=== PATIENT | male | born 1970 | race Caucasian/White ===

== ENCOUNTER 2018-05-25 21:26 | Observation (INO) ==
--- NOTE | 2018-05-25 22:10 | Emergency Department Note ---
Disposition Clinical Impression: Bilateral leg weakness Disposition: Still a Patient Referrals: NONE,PCP [Primary Care Provider] - General Adult HPI - General Chief complaint: ED Extremity Injury, Lower Stated complaint: Paralized Legs Time Seen by Provider: 05/25/18 21:32 Source: patient, family Limitations: no limitations Nursing Notes Reviewed: Yes Vital Signs Reviewed: Yes - History of Present Illness HPI Narrative: Attestation note: Patient was seen with the emergency medicine resident/nurse practitioner/physician assistant surveyor/transitional resident/medical student: Dr. JAIMEE RODRÍGUEZ I have personally performed a face to face evaluation on this patient. I have reviewed and agree with history and physical examination patient management and disposition. Briefly the salient points of the case are as follows: 47-year-old male history of bulging disc in the back was sitting at home about 3 hours prior to arrival atraumatically felt heaviness in his legs could not move them be helped into the car and helped him to the ER. He has 5 out of 5. Push and full extension. He has minimal reflexes patellar and ankle jerk bilaterally and he is unable to lift his leg off the bed or keep it elevated when it is elevated for him and eyedrops right the bed. Patient denies IV drugs fever trauma or recent travel. Consult with radiology to get approval for emergent MRI of the T and L-spine. Getting screening labs. Patient does not any pain at this time. We are ruling out a possible acute neurosurgical emergency. The car providing 45 minutes critical care service for this patient. Pain Scale: 0 Past Medical History - Past Medical History Medical history: Reports: no medical history Psychiatric history: Reports: no psych history - Social History Smoking Status: Current every day smoker Smokeless Tobacco Status: No Alcohol use: Reports: none Drug use: Reports: none Physical Exam - General Limitations: no limitations General appearance: alert, in no apparent distress Course Vital Signs Temperature 98.4 F 05/25/18 21:32 Pulse Rate 86 05/25/18 21:32 Respiratory Rate 18 05/25/18 21:32 Blood Pressure 147/94 05/25/18 21:32 O2 Sat by Pulse Oximetry 97 05/25/18 21:32 Temperature 98.4 F 05/25/18 21:32 Pulse Rate 86 05/25/18 21:32 Respiratory Rate 18 05/25/18 21:32 Blood Pressure 147/94 05/25/18 21:32 O2 Sat by Pulse Oximetry 97 05/25/18 21:32 Oxygen Delivery Oxygen Delivery Room Air
[2018-05-25 22:39] LABS: Basophils % 0.2 %; Eosinophils # 0.1 K/mcL (0.0-0.6); Eosinophils % 0.5 %; Hematocrit 53.5 % (37.5-50.1); Hemoglobin 18.4 g/dL (12.9-16.9); Immature Granulocytes % 0.3 % (0-4); Lymphocytes # 2.4 K/mcL (0.6-4.6); Mean Corpuscular HGB Conc 34.4 g/dL (31.6-35.5); Mean Corpuscular Hemoglobin 31.4 pg (28.0-33.3); Mean Corpuscular Volume 91.3 fL (83.0-100.0); Mean Platelet Volume 8.7 fL (9.4-12.4); Monocytes # 1.1 K/mcL (0.0-1.3); Monocytes % 6.1 %; Neutrophils # 13.7 K/mcL (1.6-8.9); Platelet Count 313 K/mcL (140-400); Red Blood Count 5.86 M/mcL (4.19-5.50); Red Cell Distribution Width 12.9 % (11.5-14.5); Segmented Neutrophils % 78.9 %
--- NOTE | 2018-05-25 22:42 | Emergency Department Note ---
Disposition Clinical Impression: Bilateral leg weakness Disposition: Still a Patient Condition: Fair Referrals: NONE,PCP [Primary Care Provider] - Forms: ED Satisfaction Letter General Adult HPI - General Chief complaint: ED Extremity Injury, Lower Stated complaint: Paralized Legs Time Seen by Provider: 05/25/18 21:32 Source: patient, family Limitations: no limitations Nursing Notes Reviewed: Yes Vital Signs Reviewed: Yes - History of Present Illness HPI Narrative: 47-year-old male with no past medical history presenting with complaint of weakness in bilateral lower extremities. Patient states that for the past 2 weeks at the end of the day, he notes generalized weakness and bilateral lower extremities. He states he has not been doing any heavy lifting or strenuous activity at work. Yesterday evening he developed cough and congestion. This morning he felt feverish and cough is worsening. His and grandson are also sick with similar symptoms. He started taking his 's antibiotic which she does not know the name of, prednisone, cough syrup this morning. 3 hours prior to arrival, the patient states he sat down and 45 minutes later he tried to stand up but was unable to. He states he could not get himself out of the chair. His helped him up and he immediately collapsed to the floor. States he cannot hold up his own weight. He also states he cannot lift his legs up off the bed. He is however able to wiggle his toes and move his ankles. He does complain of a burning sensation in bilateral groin in the muscle if he tries to lift up his legs. He denies any sensory deficit, urinary or bowel incontinence or retention. Denies travel outside of the country, abnormal bug bites. He denies IV drug use. States he does have a history of 3 bulging disks in his lower back that was diagnosed a few months ago. He also denies any trauma or back pain. He also denies lower extremity pain. Pain Scale: 0 - Related Data Allergies Allergy/AdvReac Type Severity Reaction Status Date / Time No Known Allergies Allergy Verified 05/25/18 22:48 All systems ED: reviewed and negative except as stated. Review of Systems: As Per HPI Constitutional: Denies: fever, chills Eyes: Denies: eye pain, vision change Cardiovascular: Denies: chest pain, palpitations Respiratory: Reports: cough, dyspnea Gastrointestinal: Denies: abdominal pain, nausea, vomiting, diarrhea Genitourinary: Denies: urgency, dysuria Musculoskeletal: Denies: back pain Integumentary: Denies: rash, abrasion, lesions Neurological: Reports: weakness, abnormal gait. Denies: headache, paresthesias, confusion Past Medical History - Past Medical History Attestation: Yes The following information was validated with the patient. Source: patient Medical history: Reports: no medical history Psychiatric history: Reports: no psych history - Social History Smoking Status: Current every day smoker Smokeless Tobacco Status: No Alcohol use: Reports: none Drug use: Reports: none Physical Exam - General Limitations: no limitations General appearance: alert, in no apparent distress - Head Head exam: atraumatic, normocephalic, normal inspection - Eye Eye exam: Present: normal appearance, PERRL, EOMI - ENT ENT exam: normal exam, normal oropharynx, mucous membranes moist - Neck Neck exam: Present: normal inspection, full ROM, trachea midline - Chest Chest inspection: Present: normal inspection, symmetric chest wall rise - Respiratory Respiratory exam: Present: normal lung sounds bilaterally. Absent: respiratory distress, wheezes - Cardiovascular Cardiovascular exam: Present: regular rate, normal rhythm, normal heart sounds - Abdominal Exam Abdominal exam: Present: soft, Non-Tender. Absent: tenderness, distention, guarding, rebound, rigidity - Extremities Exam Extremities exam: Present: normal capillary refill, other (Bilateral dorsalis pedis pulses are equal). Absent: tenderness - Back Exam Back exam: Present: normal inspection, full ROM. Absent: tenderness, paraspinal tenderness - Neurological Exam Neurological exam: Present: alert, oriented X3, CN II-XII intact, other (5/5 strength plantar flexion and dorsiflexion. Able to tense calf muscles. Unable to raise legs off the bed at the hips. Proximal lower extremity strength is 0/5. No clonus.) - Expanded Neurological Exam Patient oriented to: Present: person, place, time Speech: Present: fluid speech Upper motor neuron exam: keara neglect: Absent bilaterally, Babinski sign: Absent bilaterally Sensory exam upper extremity: light touch: Normal, pin prick: Normal Sensory exam lower extremity: light touch: Normal, pin prick: Normal DTR: patellar (L): 0, patellar (R): 0, Achilles tendon (L): 0, Achilles tendon (R): 0 Spinal cord function: Present: normal rectal tone - Psychiatric Psychiatric exam: Present: normal affect, normal mood - Skin Skin exam: Present: warm, dry, intact, normal color, diaphoresis Course Vital Signs Temperature 98.4 F 05/25/18 21:32 Pulse Rate 86 05/25/18 21:32 Respiratory Rate 18 05/25/18 21:32 Blood Pressure 147/94 05/25/18 21:32 O2 Sat by Pulse Oximetry 97 05/25/18 21:32 Temperature 98.4 F 05/25/18 21:32 Pulse Rate 86 05/25/18 21:32 Respiratory Rate 18 05/25/18 21:32 Blood Pressure 147/94 05/25/18 21:32 O2 Sat by Pulse Oximetry 97 05/25/18 21:32 Oxygen Delivery Oxygen Delivery Room Air Medical Decision Making - MDM Narrative Medical decision making narrative: Patient presenting with proximal lower extremity muscle weakness. He denies any pain in his lower extremities.. He denies back pain or trauma. He has no sensory deficits. He is able to plantarflex and dorsiflex. He does however have decreased patellar and achilles reflexes. Unable to lift his extremities off the bed, bear weight. No urinary or bowel incontinence or retention. Unclear etiology at this time. He does have a history of 3 bulging disks in his lower back. We will obtain emergent MRI of his thoracic and lumbar spine to further evaluate. We will also obtain a CRP, ESR to screen for possible inflammatory infectious processes. Will also check CBC or BMP. Anticipate admission as patient has sudden onset weakness localized to proximal musculature of bilateral lower extremities. 2300 Patient has leukocytosis of 17,000. He also has elevated ESR (39) and CRP (46). Patient's potassium is 3.0. We will replace this orally. Awaiting MRI. 0050 Still awaiting the patient's MRI. He has signed out to shift mechanic team. SBAR signout completed. Patient's vitals remaining stable. No new complaints at this time. MRI results pending and anticipate admission. - Medical Records Medical records reviewed: Yes I reviewed the patient's medical records. - Lab Data Lab results reviewed: Yes I reviewed the patient's lab results. Result diagrams: 05/25/18 22:05 05/25/18 22:05 Lab Results 05/25/18 05/25/18 05/25/18 Range/Units 22:05 22:05 22:05 WBC 17.3 H (4.3-11.1) K/mcL RBC 5.86 H (4.19-5.50) M/mcL Hgb 18.4 H (12.9-16.9) g/dL Hct 53.5 H (37.5-50.1) % MCV 91.3 (83.0-100.0) fL MCH 31.4 (28.0-33.3) pg MCHC 34.4 (31.6-35.5) g/dL RDW 12.9 (11.5-14.5) % Plt Count 313 (140-400) K/mcL MPV 8.7 L (9.4-12.4) fL Immature Gran % 0.3 (0-4) % Seg Neutrophils % 78.9 % Lymphocytes % 14.0 % Monocytes % 6.1 % Eosinophils % 0.5 % Basophils % 0.2 % Neutrophils # 13.7 H (1.6-8.9) K/mcL Lymphocytes # 2.4 (0.6-4.6) K/mcL Monocytes # 1.1 (0.0-1.3) K/mcL Eosinophils # 0.1 (0.0-0.6) K/mcL Basophils # 0.0 (0.0-0.2) K/mcL ESR 39 H (0-10) mm/hr Sodium 139 (136-145) mEq/L Potassium 3.0 L (3.5-5.1) mEq/L Chloride 106 (98-107) mEq/L Carbon Dioxide 25 (23-29) mEq/L BUN 16 (6-20) mg/dL Creatinine 1.02 (0.70-1.30) mg/dL Est GFR ( Amer) > 60 (> 60) Est GFR (Non-Af Amer) > 60 (> 60) BUN/Creatinine Ratio 16 (6-26) Glucose 141 H (70-105) mg/dL Calculated Osmolality 292 (280-300) Calcium 9.7 (8.6-10.3) mg/dL C-Reactive Protein 46 H (Less than 10) mg/L
[2018-05-25 22:55] LABS: BUN/Creatinine Ratio 16 (6-26); Blood Urea Nitrogen 16 mg/dL (6-20); C-Reactive Protein 46 mg/L (Less than 10); Calcium 9.7 mg/dL (8.6-10.3); Carbon Dioxide 25 mEq/L (23-29); Chloride 106 mEq/L (98-107); Glucose 141 mg/dL (70-105); Osmolality,Calculated 292 (280-300); Sodium 139 mEq/L (136-145); eGFR For Non-African Americans > 60 (> 60)
[2018-05-26 00:55] LABS: Creatine Kinase 76 Units/L (30-223)
[2018-05-26] MEDS ORDERED: 0.9 % Sodium Chloride 1,000 ML IVC ONE (01:00)
[2018-05-26] MEDS ORDERED: Ipratropium/Albuterol Neb 3 ML IH STA (03:52)
[2018-05-26] MEDS ORDERED: Naloxone 0.4 MG/ML INJ IVP PRN (04:39)
--- NOTE | 2018-05-26 04:50 | Emergency Department Note ---
Disposition Clinical Impression: Bilateral leg weakness, Hypokalemia Leukocytosis Qualifiers: Leukocytosis type: unspecified Qualified Code(s): D72.829 - Elevated white blood cell count, unspecified Disposition: Admitted As Inpatient Condition: Good Referrals: NONE,PCP [Primary Care Provider] - Forms: ED Satisfaction Letter General Adult HPI - General Chief complaint: ED Extremity Injury, Lower Stated complaint: paralyzed Legs Time Seen by Provider: 05/25/18 21:32 Source: patient, family Limitations: no limitations - History of Present Illness Pain Scale: 0 - Related Data Allergies Allergy/AdvReac Type Severity Reaction Status Date / Time No Known Allergies Allergy Verified 05/25/18 22:48 Constitutional: Denies: fever, chills Eyes: Denies: eye pain, vision change Cardiovascular: Denies: chest pain, palpitations Respiratory: Reports: cough, dyspnea Gastrointestinal: Denies: abdominal pain, nausea, vomiting, diarrhea Genitourinary: Denies: urgency, dysuria Musculoskeletal: Denies: back pain Integumentary: Denies: rash, abrasion, lesions Neurological: Reports: weakness, abnormal gait. Denies: headache, paresthesias, confusion Past Medical History - Past Medical History Medical history: Reports: no medical history Psychiatric history: Reports: no psych history - Social History Smoking Status: Current every day smoker Smokeless Tobacco Status: No Alcohol use: Reports: none Drug use: Reports: none Physical Exam - General Limitations: no limitations General appearance: alert, in no apparent distress Course Course Narrative: Patient was taken over at sign out from Dr. Rogers. Patient was evaluated at bedside after sign out. Patient reports that he is here as he was unable to get himself up off the couch secondary to his legs not working. The patient states that he is been having muscle cramps and associated weakness. Started proximally 2 weeks ago when he was having pain in his calves worse on the left after walking. After episodes of walking he would feel as if he had done calf raises at the gym. Patient states that he was overly sore. Did not understand it. Patient started having episodes like this in the thighs. Patient today had been having worsening symptoms like this until he sat on the couch and was unable to get up. On workup the patient was found to have an elevated white blood cell count. Patient had hypokalemia. Mildly elevated ESR and CRP. Patient states that he is had a cold for the last several days and has been taking his 's prednisone antibiotics. The prednisone may explain the patient's elevated white count. Patient states that he has had a cough and would like something for it. On lung exam he does have wheezing and likely has bronchitis. Given the uncertain etiology of his underlying paralysis and chest x-ray was performed in addition with the [facility]oN[facility]. The patient states that he has had previous episodes of pericarditis that had unknown etiology. General: Well appearing, nontoxic, no acute distress Head: Normocephalic Atraumatic Eyes: PERRL, EOMI ENT: Airway patent, no stridor Neck: supple, no meningismus Chest: Mild expiratory wheezing Cardiac: Regular rate and rhythm, no murmurs, rubs or gallops Abdomen: soft, nontender, nondistended; no guarding, rebound, or tenderness to percussion Musculoskeletal: Calves symmetric, nontender. Skin: No rash, normal skin tone. Neuro: Alert and Oriented to person, place, and time; No obvious focal deficit. Cranial nerve II through XII intact. Upper extremity sensation and strength is intact. Sensation throughout the torso as well as the lower extremities is intact. Patient has weakness to lower extremities. Weakness is most significant in the hip flexors. The patient has more strength with knee extension as well as plantar and dorsiflexion and hip flexion. Symptoms are worse on the left than the right. Patellar reflexes are +2 and symmetric. Rectal exam shows good rectal tone. Patient's MRI did not show any significant acute pathology. He does know that he has degenerative disc disease. MRI approximately a month ago. The case was discussed with neurology. Dr. Ott will see him as an inpatient at [facility]. No need for lumbar puncture transfer at this time. Discussed the hospitalist. Patient accepted for admission. Recommends getting an EKG and a lactic acid. Vital Signs Temperature 98.4 F 05/25/18 21:32 Pulse Rate 86 05/25/18 21:32 Respiratory Rate 18 05/25/18 21:32 Blood Pressure 147/94 05/25/18 21:32 O2 Sat by Pulse Oximetry 97 05/25/18 21:32 Temperature 98.4 F 05/25/18 21:32 Pulse Rate 82 05/26/18 04:09 Respiratory Rate 16 05/26/18 04:26 Blood Pressure 129/87 05/26/18 04:09 O2 Sat by Pulse Oximetry 96 05/26/18 04:26 Oxygen Delivery Oxygen Delivery Room Air Medical Decision Making - Lab Data Result diagrams: 05/25/18 22:05 05/25/18 22:05 Lab Results 05/25/18 05/25/18 05/25/18 Range/Units 22:05 22:05 22:05 WBC 17.3 H (4.3-11.1) K/mcL RBC 5.86 H (4.19-5.50) M/mcL Hgb 18.4 H (12.9-16.9) g/dL Hct 53.5 H (37.5-50.1) % MCV 91.3 (83.0-100.0) fL MCH 31.4 (28.0-33.3) pg MCHC 34.4 (31.6-35.5) g/dL RDW 12.9 (11.5-14.5) % Plt Count 313 (140-400) K/mcL MPV 8.7 L (9.4-12.4) fL Immature Gran % 0.3 (0-4) % Seg Neutrophils % 78.9 % Lymphocytes % 14.0 % Monocytes % 6.1 % Eosinophils % 0.5 % Basophils % 0.2 % Neutrophils # 13.7 H (1.6-8.9) K/mcL Lymphocytes # 2.4 (0.6-4.6) K/mcL Monocytes # 1.1 (0.0-1.3) K/mcL Eosinophils # 0.1 (0.0-0.6) K/mcL Basophils # 0.0 (0.0-0.2) K/mcL ESR 39 H (0-10) mm/hr Sodium 139 (136-145) mEq/L Potassium 3.0 L (3.5-5.1) mEq/L Chloride 106 (98-107) mEq/L Carbon Dioxide 25 (23-29) mEq/L BUN 16 (6-20) mg/dL Creatinine 1.02 (0.70-1.30) mg/dL Est GFR ( Amer) > 60 (> 60) Est GFR (Non-Af Amer) > 60 (> 60) BUN/Creatinine Ratio 16 (6-26) Glucose 141 H (70-105) mg/dL Calculated Osmolality 292 (280-300) Calcium 9.7 (8.6-10.3) mg/dL Magnesium 2.0 (1.6-2.6) mg/dL Creatine Kinase 76 (30-223) Units/L C-Reactive Protein 46 H (Less than 10) mg/L
--- NOTE | 2018-05-26 04:56 | Internal Med History&Physical ---
Date of Encounter: 05/26/18 Time of Encounter: 05:28 Internal Medicine - H&P: HPI Chief complaint: I cant move my legs Admitted From: Home Plans for Post Hospital Care: Home History of present illness: Mr. Scott is a 47 year old male with PMH of tobacco abuse who presented with complains of weakness in bilateral lower extremities. Patient states that for the past 2 weeks at the end of the day, he notes generalized weakness and bilateral lower extremities. He states he has not been doing any heavy lifting or strenuous activity at work. He describes associated pain with heaviness, feeling as if he had been to the gym to work out, when in reality he has not worked out in a year due to his busy schedule. His and kids have had a URI from which they are rcovering, however, Yesterday evening he developed cough and congestion. This morning he felt feverish and cough is worsening. He started taking his 's antibiotic which she does not know the name of, prednisone, cough syrup this morning. 3 hours prior to arrival, the patient states he sat down and 45 minutes later he tried to stand up but was unable to. He states he could not get himself out of the chair. His helped him up and he immediately collapsed to the floor. States he cannot hold up his own weight. He also states he cannot lift his legs up off the bed. He is however able to wiggle his toes and move his ankles. He does complain of a burning sensation in bilateral groin in the muscle if he tries to lift up his legs. He denies any sensory deficit, urinary or bowel incontinence or retention. Denies travel outside of the country, abnormal bug bites. States he does have a history of 3 bulging disks in his lower back that was diagnosed a few months ago. He also denies any trauma or back pain. He also denies lower extremity pain. The patient reports taking up to 1200mg of testosterone in his youth but has recently in the past 3 months taking (self-medicating) 1cc (strength unknown) of testosterone. Last shot was 2 weeks ago prior to the onset of his symptoms He denies illicit drug use, he is also a smoker Work up in the ER significant for leukocytosis and polycythemia, hypokalemia, elevated CRP and ESR. CK is unremarkable and lactate is WNL. CXR is unremarkable for any masses, Lumbar and thoracic MRI noted for chronic DJD, no spinal cord compression Past Med Surg Social Fam HX - Past Medical History Medical history: no medical history Additional medical history: pericarditis Psychiatric history: no psych history - Past Surgical History Additional surgical history: shoulder, right leg, right knee surgery - Social History Smoking Status: Current every day smoker Smokeless Tobacco Status: No Alcohol use: none Drug use: none Internal Medicine - H&P: Meds Allergy/AdvReac Type Severity Reaction Status Date / Time No Known Allergies Allergy Verified 05/25/18 22:48 All Systems PM: A 10-system review of systems was performed and is negative for pertinent findings except as documented above in the HPI. - Constitutional Constitutional: no chills, no fever(s), no night sweats - EENT Eyes: no change in vision, no discharge, no pain, no photophobia Ears: no ear discharge, no ear pain, no tinnitus Nose, mouth and throat: no dysphagia, no nasal discharge, no neck pain, no sore throat - Cardiovascular Cardiovascular ROS IM: no chest pain, no diaphoresis, no dyspnea, no lightheadedness, no palpitations, no syncope - Respiratory Respiratory: no cough, no dyspnea, no wheezing, no excessive phlegm production - Gastrointestinal Gastrointestinal: no abdominal pain, no diarrhea, no hematemesis, no hematoch ezia, no melena, no nausea, no vomiting - Musculoskeletal Musculoskeletal ROS IM: as per HPI, muscle cramps, muscle weakness - Integumentary Integumentary IM: no rash, no unusual bruising - Neurological Neurological ROS: as per HPI - Hematologic/Lymphatic Hematologic/Lymphatic: no easy bruising - Constitutional Vitals: Temp Pulse Resp BP Pulse Ox 98.4 F 82 16 129/87 96 05/25/18 21:32 05/26/18 04:09 05/26/18 04:26 05/26/18 04:09 05/26/18 04:26 Exam: VSS Gen: Not in any form of distress, speaks full sentences, laying flat in bed, flushed HEENT: Atraumatic, not pale, not cyanotic anicteric, dry oral mucosa. Chest: Equal chest wall movement bilaterally, no chest wall tenderness. Respiratory: Clear to auscultation bilaterally. Heart: S1, S2, regular rate and rhythm no murmurs gallops or rubs. Abdomen: Soft, not tender, no palpably enlarged organs, BS present in all quadrants Musculoskeletal: No joint inspection, no pedal edema bilaterally. Skin: No rash Neuro: Alert and oriented 3, normal speech, no facial assymetry, power in upper extremities 5/5, power in upper thiht muscles 3/5, leg muscles 5/5. Knee jerk reflex is brisk, plantar reflex is normal, ankle reflex is mildly delayed. Sensation is intact Internal Med - H&P Results - Labs CBC & Chem 7: 05/25/18 22:05 05/25/18 22:05 Labs: Short CBC 05/25/18 Range/Units 22:05 WBC 17.3 H (4.3-11.1) K/mcL Hgb 18.4 H (12.9-16.9) g/dL Hct 53.5 H (37.5-50.1) % Plt Count 313 (140-400) K/mcL Neutrophils # 13.7 H (1.6-8.9) K/mcL BMP 05/25/18 22:05 Sodium 139 Potassium 3.0 L Chloride 106 Carbon Dioxide 25 BUN 16 Creatinine 1.02 Glucose 141 H Calcium 9.7 - Impressions ITS Impressions Lumbar Spine MRI 05/26/18 21:57 IMPRESSION: 1. Multilevel lumbar spondylosis results in mild L3-L4 and L4-L5 spinal canal stenosis. No moderate or severe lumbar spinal canal stenosis at any level. Multilevel neural foraminal narrowing is most pronounced and moderate to severe at L4-L5 on the right. 2. No thoracic spinal canal or neural foraminal narrowing. Normal thoracic spinal cord. D/ / Bernardo Sessions / Bernardo Meredith Interpreting Provider: Bernardo Meredith Thoracic Spine MRI 05/26/18 21:57 IMPRESSION: 1. Multilevel lumbar spondylosis results in mild L3-L4 and L4-L5 spinal canal stenosis. No moderate or severe lumbar spinal canal stenosis at any level. Multilevel neural foraminal narrowing is most pronounced and moderate to severe at L4-L5 on the right. 2. No thoracic spinal canal or neural foraminal narrowing. Normal thoracic spinal cord. D/ / Bernardo Sessions / Bernardo Sessions Interpreting Provider: Bernardo Sessions - Assessment and plan (1) Paraparesis of both lower limbs Current Visit: Yes Status: Acute Assessment and plan: Multifactorial: Patient with lumbar radiculopathy and testosterone/g lucocorticoid abuse, presenting with myopathy and weakness of his lower extremities Worse on the upper thigh muscles than leg muscles, sensation is intact, hx of URI 2 days ago Associated hypokalemia and hyperglycemia, as well as polycythemia CK is unremarkable Lactate is WNL MRI noted-no cord compression Replace K aggressively-rpt K requested PPTOT and neurology evaluation Low suspicion for Gullian Bare, presentation is atypical in the face of other possible etiologies of paresis (2) Hypokalemia Current Visit: Yes Status: Acute Assessment and plan: replaced, mag is WNL, continue to monitor (3) Hyperglycemia Current Visit: Yes Status: Acute Assessment and plan: Likely due to steroids Check A1C (4) Polycythemia Current Visit: Yes Status: Acute Assessment and plan: Likely due to testosterone injections, as well as tobacco abuse IVF hydration Continue to monitor (5) Leukocytosis Current Visit: Yes Status: Acute Assessment and plan: Due to steroids Continue to monitor Qualifiers: Leukocytosis type: unspecified Qualified Code(s): D72.829 - Elevated white blood cell count, unspecified (6) Tobacco abuse Current Visit: Yes Status: Chronic Assessment and plan: encourage cessation - Time Spent With Patient Total time spent is greater than 50% in coordination of care (as documented) at patient's floor/unit and/or counseling patient:
[2018-05-26] MEDS ORDERED: 0.9 % Sodium Chloride 1,000 ML IVC SCH (05:45)
[2018-05-26 09:34] LABS: Estimated Average Glucose 114 mg/dl; Hemoglobin A1C 5.6 %
--- NOTE | 2018-05-26 14:00 | Internal Med Progress Note ---
Hospitalist Progress Note - Encounter Date of Encounter: 05/26/18 Time of Encounter: 10:10 - Subjective Interval History: Pt was seen and assessed at 1010 am. Pt states that for the first time in a week, he was able to move his legs during the night. He has normal BLE strength and states that he has sensation back in BLE. He denies back pain, neck pain, nausea, vomiting, diarrhea, headache, blurred vision or chest pain. - Exam Vitals: Temp Pulse Resp BP Pulse Ox 98.1 F 87 15 121/74 97 05/26/18 10:12 05/26/18 10:12 05/26/18 10:12 05/26/18 10:12 05/26/18 10:12 Exam: General: Pt resting quietly on bed, no distress. Skin: pwd, no rashes, lesions, redness Neurological: Pt is alert and awake, oriented x 3, Speech is clear, PERRLA, EOMI, no nystagmus, no pronator drift. strength equal x 4 extremities HEENT: mucous mumbranes moist, no conjuctival pallor Neck: supple, no tracheal deviation, no lymphadenopathy, tenderness, no thyromegaly Heart: S1S2 heard without gallops, clicks, murmurs, no bradycardia or tachycardia, pt has no peripheral edema, pedal and radial pulses palpable bilaterally. Lungs: clear throughout without wheezing, rales, or ronchi, respirations are unlabored Abdomen: soft and non tender with bowel sound present, no hepatomegaly. Psych: Normal affect with good eye contact - Assessment and Plan (1) Paraparesis of both lower limbs Current Visit: Yes Status: Acute Assessment and Plan: Multifactorial: Patient with lumbar radiculopathy and testosterone/glucocorticoid abuse, presenting with myopathy and weakness of his lower extremities for 3 weeks Pt states that during the day he had no symptoms, but every night at about 1900 he would begin having symptoms and was unable to move his legs during the night, reports sensation loss, and muscle soreness. Worse on the upper thigh muscles than leg muscles, sensation is intact, hx of URI 2 days ago Associated hypokalemia and hyperglycemia, as well as polycythemia CK is unremarkable Lactate is WNL MRI noted-no cord compression Replace K aggressively-rpt K requested PPTOT have identified no needs Neurology consultation ordered and pending. Low suspicion for Gullian Bare, presentation is atypical in the face of other possible etiologies of paresis 05/26- Pt reprots resolution of symptoms this a.m. He states that for the first time in 3 weeks he could move his legs at night and had no muscle pain. Physical exam reveals normal strength in bilateral lower extremities and he reports normal sensation bilaterally. (2) Hypokalemia Current Visit: Yes Status: Acute Assessment and Plan: replaced, mag is WNL, continue to monitor K+ improved today, 3.4 Continue supplementation and continue to monitor labs. (3) Hyperglycemia Current Visit: Yes Status: Acute Assessment and Plan: Likely due to steroid use. A1c 5.6% (4) Polycythemia Current Visit: Yes Status: Acute Assessment and Plan: Likely due to testosterone injections, as well as tobacco abuse IVF hydration Continue to monitor Repeat labs in the a.m. (5) Leukocytosis Current Visit: Yes Status: Acute Assessment and Plan: likely due to steroids use. No signs of infection, lactic WNL, no fever, tachycardia, hypotension. Repeat labs in the a.m. (6) Tobacco abuse Current Visit: Yes Status: Chronic Assessment and Plan: encourage cessation Nicotine replacement as needed. - Time Spent with Patient Total time spent is greater than 50% in coordination of care (as documented) at patient's floor/unit and/or counseling patient: less than 15 minutes Plan of Care Discussed with: patient Internal Medicine: Result - Labs CBC & Chem 7: 05/25/18 22:05 05/26/18 05:09 Labs: Short CBC 05/25/18 Range/Units 22:05 WBC 17.3 H (4.3-11.1) K/mcL Hgb 18.4 H (12.9-16.9) g/dL Hct 53.5 H (37.5-50.1) % Plt Count 313 (140-400) K/mcL Neutrophils # 13.7 H (1.6-8.9) K/mcL BMP 05/25/18 05/26/18 22:05 05:09 Sodium 139 Potassium 3.0 L 3.4 L Chloride 106 Carbon Dioxide 25 BUN 16 Creatinine 1.02 Glucose 141 H Calcium 9.7 - Impressions Impressions Chest X-Ray 05/26/18 03:53 IMPRESSION: Negative portable chest. D/ / Maurice Venegas MD / Maurice Venegas MD Interpreting Provider: Maurice Venegas MD Lumbar Spine MRI 05/26/18 21:57 IMPRESSION: 1. Multilevel lumbar spondylosis results in mild L3-L4 and L4-L5 spinal canal stenosis. No moderate or severe lumbar spinal canal stenosis at any level. Multilevel neural foraminal narrowing is most pronounced and moderate to severe at L4-L5 on the right. 2. No thoracic spinal canal or neural foraminal narrowing. Normal thoracic spinal cord. D/ / Bernardo Sessions / Bernardo Sessions Interpreting Provider: Bernardo Meredith Thoracic Spine MRI 05/26/18 21:57 IMPRESSION: 1. Multilevel lumbar spondylosis results in mild L3-L4 and L4-L5 spinal canal stenosis. No moderate or severe lumbar spinal canal stenosis at any level. Multilevel neural foraminal narrowing is most pronounced and moderate to severe at L4-L5 on the right. 2. No thoracic spinal canal or neural foraminal narrowing. Normal thoracic spinal cord. D/ / Bernardo Sessions / Bernardo Sessions Interpreting Provider: Bernardo Meredith Consult Discharge Plan - Plan Referrals: NONE,PCP [Primary Care Provider] - (5) Leukocytosis Qualifiers: Leukocytosis type: unspecified Qualified Code(s): D72.829 - Elevated white blood cell count, unspecified
--- NOTE | 2018-05-26 14:36 | Neurology - Consult Note ---
<Phillip Bauer - Last Filed: 05/26/18 14:39> Date of Encounter: 05/26/18 Time of Encounter: 14:35 Assessment and Plan (1) Bilateral leg weakness Current Visit: Yes Status: Acute Patient describes progressive weakness throughout the day in his lower extremities bilaterally - This is been going on for the last 2 weeks; no known inciting factors the patient is aware of - Patient does admit that he has started self-therapy with testosterone in the last 2 months - Describes weakness as present after exertion throughout the day, starting at a pproximately 7 PM - He states that his symptoms have fully resolved once he wakes up in the morning after sleeping - CRP was elevated at 46, creatinine kinase within normal limits at 76 MRI of the thoracic/lumbar spine demonstrated the following: - Multilevel lumbar spondylosis resulting in mild L3-L4 and L4-L5 spinal canal stenosis - No moderate or severe lumbar spinal canal stenosis at any level - Multilevel neural foraminal narrowing, most pronounced in moderate to severe at L4 and L5 on the right - No thoracic spinal canal or neural foramen narrowing; normal thoracic spinal cord Plan: - No further neurologic workup is required at this time - Patient should follow up with neurology in the outpatient setting for possible nerve conduction study History of Present Illness HPI: Best Scott is a 47-year-old male with a PMH of tobacco use who presented to [facility] ED on 05/25/18 with a chief complaint of bilateral lower extremity weakness. He reported that in the last 2 weeks at the end of the day, he is experienced generalized weakness at the waist down. He states that this is sometimes bilateral and sometimes unilateral. Sometimes it only involves his calf. He states that he had not been doing any heavy lifting or strenuous activity at work, and does not know of any inciting factors. He describes the sensation as heaviness, as if he had been to the gym to work out. However, he reports that he has not worked for almost a year due to his busy schedule. He reported that approximately 3 hours prior to arrival, he sat down, and was un able to stand after 45 minutes. He could not get himself out of the chair. His helped him up, and he immediately collapsed to the floor. He was unable to support his own weight. He was still able to wiggle his toes and moves ankles. Described a burning sensation in bilateral groin in the muscle if he try to lift his legs. Patient reported that he had been taking up to 1200 mg of testost erone in his youth, beginning in his early 30s up until a few years ago. He stated that he abruptly stopped, and experienced a massive reduction in strength, energy, libido. He states that in the past 2 months, he has been self-medicating with approximately 1 mL of testosterone. He states that his last shot was 2 weeks prior to the start of his symptoms. Laboratory analysis demonstrated an elevated ESR and CRP. CK was unremarkable. Patient seen and examined at bedside; he states that he is feeling well. He states that the weakness in the lower extremities has been resolved since he has been in the hospital. Denies any issues with standing up. Denies numbness, tingling, pain, paresthesias, dizziness, back pain, vertigo, or joint pain. He has no further complaints at this time. Past Med Surg Social Fam HX - Past Medical History Medical history: no medical history Additional medical history: pericarditis Psychiatric history: no psych history - Past Surgical History Additional surgical history: shoulder, right leg, right knee surgery - Social History Smoking Status: Current every day smoker Packs per day: 1 Smokeless Tobacco Status: No Alcohol use: none Drug use: none - Family History Mother History Unknown: Yes Father History Unknown: Yes Medications and Allergies No Known Home Drugs 05/26/18 [History] Allergy/AdvReac Type Severity Reaction Status Date / Time No Known Allergies Allergy Verified 05/26/18 13:13 All Systems: The remainder of the systems were reviewed and are negative - Constitutional Constitutional ROS IM: as per HPI, no weakness - Musculoskeletal Musculoskeletal ROS IM: as per HPI, no joint swelling, no limited range of motion, no muscle cramps, no muscle weakness, no numbness, no radiating pain into limb, no stiffness, no tingling - Neurological Neurological ROS: as per HPI, no dizziness, no focal weakness, no numbness, no paresthesias, no sensory deficit, no tingling, no tremor(s), no vertigo, no weakness, no other visual disturbances Physical Examination - Vital Signs Vital Signs: Initial Vital Signs Temp Pulse Resp BP Pulse Ox 98.4 F 86 18 147/94 97 05/25/18 21:32 05/25/18 21:32 05/25/18 21:32 05/25/18 21:32 05/25/18 21:32 - Constitutional General appearance: comfortable - Neurologic Sensorimotor examination: intact Motor examination - right side: 5/5: deltoids, biceps, triceps, wrist flexion, wrist extension, control specialist, toe extension (EHL), plantarflexion Motor examination - left side: 5/5: deltoids, biceps, triceps, wrist flexion, wrist extension, control specialist, toe extension (EHL), plantarflexion Detailed sensory examination: intact Reflexes: Brachioradialis: 2+, Patella: 2+ Mental Status Examination: awake, alert, oriented to person, oriented to place, oriented to time, follows commands appropriately, answers questions a ppropriately Cranial nerve examination: PERRL, EOMI, visual roper intact Results - Laboratory Findings CBC and BMP: 05/25/18 22:05 05/26/18 05:09 Abnormal lab findings: Abnormal lab results WBC 17.3 K/mcL (4.3-11.1) H 05/25/18 22:05 RBC 5.86 M/mcL (4.19-5.50) H 05/25/18 22:05 Hgb 18.4 g/dL (12.9-16.9) H 05/25/18 22:05 Hct 53.5 % (37.5-50.1) H 05/25/18 22:05 MPV 8.7 fL (9.4-12.4) L 05/25/18 22:05 Neutrophils # 13.7 K/mcL (1.6-8.9) H 05/25/18 22:05 ESR 39 mm/hr (0-10) H 05/25/18 22:05 Potassium 3.4 mEq/L (3.5-5.1) L 05/26/18 05:09 Glucose 141 mg/dL (70-105) H 05/25/18 22:05 C-Reactive Protein 46 mg/L (Less than 10) H 05/25/18 22:05 Consult Discharge Plan - Plan Referrals: NONE,PCP [Primary Care Provider] - <Leon Ott - Last Filed: 05/26/18 16:46> Date of Encounter: 05/26/18 Time of Encounter: 16:38 Assessment and Plan (1) Bilateral leg weakness Current Visit: Yes Status: Acute As above. I am not completely convinced that the cyclic leg weakness that he is experiencing is due to a primary neurologic entity. It does not seem to be consistent with periodic paralysis because is no relation of his symptoms to high carbohydrate consumption. I would feel that the potassium was low enough to cause this phenomenon. I am not convinced that the MRI findings of the etiology of this because it is cyclic. His symptoms have now completely res olved. His neurologic examination is normal. CPK levels were normal. His white count however his elevated and he is diaphoretic in the bed. I would recommend pursuing other etiologies for an elevated white count and the patient this age. He has been using anabolic steroids much of his adult life. He continues to use about 100 mg testosterone per week. Recommend checking another CBC, CRP, ANAs titer CAROLYN level and sedimentation rate, we will also consider serum protein electrophoresis, serum immunoelectrophoresis. HIV screening should be considered if not already done. Finally I might consider the possibility of an underlying malignancy if no infectious etiology is identified. Otherwise I would reevaluate him as an outpatient for EMG study. History of Present Illness HPI: The chart was reviewed, the patient was seen and examined independently. Case was discussed with the neurology resident on service. I agree with his assessment as stated above. At the time however patient's symptoms have completely resolved. All Systems: The remainder of the systems were reviewed and are negative Review of Systems: The balance of the systems review is negative. Physical Examination - Vital Signs Vital Signs: Initial Vital Signs Temp Pulse Resp BP Pulse Ox 98.4 F 86 18 147/94 97 05/25/18 21:32 05/25/18 21:32 05/25/18 21:32 05/25/18 21:32 05/25/18 21:32 - Exam Exam: General Examination: *CONSTITUTIONAL: normal *GENERAL APPEARANCE OF PATIENT appears healthy and well groomed *EYES: pupils equal, round, reactive to light and accommodation, conjunctiva clear without masses or ulcerations, fundi normal. *CARDIOVASCULAR no peripheral edema, distal temperature normal, dorsalis pedis pulses normal. Refer to vital signs Musculoskeletal: *GAIT AND STATION normal, with normal Romberg testing, no abnormalities such as broad base gait or spasticity *ASSESSMENT OF MUSCLE STRENGTH IN THE UPPER AND LOWER EXTREMITIES deltoid, bicep, tricep, control specialist strength, hip flexors ,anterior tibialis, dorsoflexion of the foot normal. *MUSCLE TONE IN THE UPPER AND LOWER EXTREMITIES normal. No abnormal m ovements, fasciculations or atrophy identified. Neurological: *ORIENTATION to time and place *RECURRENT AND REMOTE MEMORY intact *ATTENTION AND CONCENTRATION are normal *LANGUAGE FUNCTION no significant aphasia or dysarthia was noted. *FUND OF KNOWLEDGE aware of current events, past history, vocabulary *MENTAL attention span and concentration normal. *CN II optic fundi were normal, no papilledema noted. *CN III,IV, PERRLA extraocular eye movements were full, no nystagmus and no ptosis noted. *CN V shows normal sensation and jaw opens symmetrically. *CN VII shows normal facial movement symmetrically, upper and lower bilaterally. *CN VIII shows no significant hearing loss on examination in the office. *CN IX,,X palate elevated symmetrically and normal gag reflex was noted. *CN XI normal strength in the sternocleidomastoid muscles, symmetrical shoulder shrugging. *CN XII tongue protruded in the midline, with normal strength and movement. *SENSORY EXAMINATION pinprick sensation intact, and light touch(vibration sense). *REFLEXES: deep tendon reflexes were normal and symmetrical , grade 2/4 diffusely, no pathological reflexes were noted. *CEREBELLAR TESTING normal finger to nose, heel/knee/hawkins, and tandem walk. *PAIN LEVEL -0 Results - Laboratory Findings CBC and BMP: 05/25/18 22:05 05/26/18 05:09 Abnormal lab findings: Abnormal lab results WBC 17.3 K/mcL (4.3-11.1) H 05/25/18 22:05 RBC 5.86 M/mcL (4.19-5.50) H 05/25/18 22:05 Hgb 18.4 g/dL (12.9-16.9) H 05/25/18 22:05 Hct 53.5 % (37.5-50.1) H 05/25/18 22:05 MPV 8.7 fL (9.4-12.4) L 05/25/18 22:05 Neutrophils # 13.7 K/mcL (1.6-8.9) H 05/25/18 22:05 ESR 39 mm/hr (0-10) H 05/25/18 22:05 Potassium 3.4 mEq/L (3.5-5.1) L 05/26/18 05:09 Glucose 141 mg/dL (70-105) H 05/25/18 22:05 C-Reactive Protein 46 mg/L (Less than 10) H 05/25/18 22:05
[2018-05-26] MEDS ORDERED: Acetaminophen 325 MG TABLET PO ONE (15:02)
[2018-05-26] MEDS ORDERED: Menthol 9.1 MG LOZENGE PO PRN (22:59)
[2018-05-26] MEDS: Benzonatate 100 MG CAPSULE PO PRN (23:19)
[2018-05-26] MEDS ORDERED: GuaiFENesin/Pseudophedrine TABLET PO PRN (23:32)
[2018-05-26] MEDS ORDERED: Saline Nasal Spray 44 ML BOTTLE NS PRN (23:32)
[2018-05-27 06:19] LABS: Basophils # 0.1 K/mcL (0.0-0.2); Basophils % 0.4 %; Eosinophils # 0.3 K/mcL (0.0-0.6); Eosinophils % 1.9 %; Hematocrit 52.8 % (37.5-50.1); Hemoglobin 17.4 g/dL (12.9-16.9); Immature Granulocytes % 0.4 % (0-4); Lymphocytes # 2.5 K/mcL (0.6-4.6); Lymphocytes % 17.3 %; Mean Corpuscular Hemoglobin 31.1 pg (28.0-33.3); Mean Corpuscular Volume 94.5 fL (83.0-100.0); Mean Platelet Volume 8.8 fL (9.4-12.4); Monocytes # 0.8 K/mcL (0.0-1.3); Monocytes % 5.8 %; Neutrophils # 10.6 K/mcL (1.6-8.9); Platelet Count 288 K/mcL (140-400); Red Blood Count 5.59 M/mcL (4.19-5.50); Red Cell Distribution Width 13.1 % (11.5-14.5); Segmented Neutrophils % 74.2 %
[2018-05-27 06:36] LABS: BUN/Creatinine Ratio 16 (6-26); Blood Urea Nitrogen 12 mg/dL (6-20); Calcium 8.8 mg/dL (8.6-10.3); Carbon Dioxide 23 mEq/L (23-29); Chloride 106 mEq/L (98-107); Glucose 105 mg/dL (70-105); Osmolality,Calculated 280 (280-300); Potassium 4.2 mEq/L (3.5-5.1); Sodium 135 mEq/L (136-145); eGFR For Non-African Americans > 60 (> 60)
[2018-05-27] MEDS: Benzonatate 100 MG CAPSULE PO PRN (11:30)
[2018-05-27] MEDS ORDERED: Acetaminophen 325 MG TABLET PO PRN (11:33)
[2018-05-27] MEDS ORDERED: levoFLOXacin 750 MG TABLET PO SCH (11:45)
--- NOTE | 2018-05-27 11:47 | Neurology Progress Note ---
Date of Encounter: 05/27/18 Time of Encounter: 11:44 Assessment and Plan (1) Bilateral leg weakness Current Visit: Yes Status: Acute At this juncture, unable to identify any specific neurologic etiology to explain his recurrent episodes of lower extremity weakness. I suspect however this is due to some underlying metabolic process labs relative to his previous testosterone use, or some other underlying metabolic, infectious, nutritional or other process. I will reevaluate him at your request. Consider chest x-ray and septic workup Subjective Interval history: I had the pleasure of following up with Mr. Scott today regarding his complaint of episodic lower extremity weakness. He did not experience such an episode last night. However he has had very intense coughing episodes and some soreness of his chest and abdominal systems result of excessive coughing. His white cell count is somewhat diminished today however not back to normal. Objective - Constitutional Vitals: Temp Pulse Resp BP Pulse Ox 98.0 F 80 14 133/90 97 05/27/18 11:17 05/27/18 11:17 05/27/18 11:17 05/27/18 11:17 05/27/18 11:17 - Neurological Exam Sensorimotor examination: Present: intact Motor examination - left side: 5/5: deltoids, biceps, triceps, wrist flexion, w rist extension, data examination clerk, toe extension (EHL), plantarflexion Sensation intact: Present: intact Mental Status Examination: Present: awake, alert, oriented to person, oriented to place, oriented to time, follows commands appropriately, answers questions a ppropriately Cranial nerve examination: Present: PERRL, EOMI, visual roper intact Additional comments: General Examination: *CONSTITUTIONAL: normal *GENERAL APPEARANCE OF PATIENT appears healthy and well groomed *EYES: pupils equal, round, reactive to light and accommodation, conjunctiva clear without masses or ulcerations, fundi normal. *CARDIOVASCULAR no peripheral edema, distal temperature normal, dorsalis pedis pulses normal. Refer to vital signs Musculoskeletal: *GAIT AND STATION normal, with normal Romberg testing, no abnormalities such as broad base gait or spasticity *ASSESSMENT OF MUSCLE STRENGTH IN THE UPPER AND LOWER EXTREMITIES deltoid, bicep, tricep, data examination clerk strength, hip flexors ,anterior tibialis, dorsoflexion of the foot normal. *MUSCLE TONE IN THE UPPER AND LOWER EXTREMITIES normal. No abnormal movements, fasciculations or atrophy identified. Neurological: *ORIENTATION to time and place *RECURRENT AND REMOTE MEMORY intact *ATTENTION AND CONCENTRATION are normal *LANGUAGE FUNCTION no significant aphasia or dysarthia was noted. *FUND OF KNOWLEDGE aware of current events, past history, vocabulary *MENTAL attention span and concentration normal. *CN II optic fundi were normal, no papilledema noted. *CN III,IV, PERRLA extraocular eye movements were full, no nystagmus and no ptosis noted. *CN V shows normal sensation and jaw opens symmetrically. *CN VII shows normal facial movement symmetrically, upper and lower bilaterally. *CN VIII shows no significant hearing loss on examination in the office. *CN IX,,X palate elevated symmetrically and normal gag reflex was noted. *CN XI normal strength in the sternocleidomastoid muscles, symmetrical s houlder shrugging. *CN XII tongue protruded in the midline, with normal strength and mov ement. *SENSORY EXAMINATION pinprick sensation intact, and light touch(vibration sense). *REFLEXES: deep tendon reflexes were normal and symmetrical , grade 2/4 diffusely, no pathological reflexes were noted. *CEREBELLAR TESTING normal finger to nose. Results - Laboratory Findings CBC and BMP: 05/27/18 05:07 05/27/18 05:07 Abnormal lab findings: Abnormal lab results WBC 14.3 K/mcL (4.3-11.1) H 05/27/18 05:07 RBC 5.59 M/mcL (4.19-5.50) H 05/27/18 05:07 Hgb 17.4 g/dL (12.9-16.9) H 05/27/18 05:07 Hct 52.8 % (37.5-50.1) H 05/27/18 05:07 MPV 8.8 fL (9.4-12.4) L 05/27/18 05:07 Neutrophils # 10.6 K/mcL (1.6-8.9) H 05/27/18 05:07 ESR 39 mm/hr (0-10) H 05/25/18 22:05 Sodium 135 mEq/L (136-145) L 05/27/18 05:07 C-Reactive Protein 46 mg/L (Less than 10) H 05/25/18 22:05 Consult Discharge Plan - Plan Referrals: NONE,PCP [Primary Care Provider] -
[2018-05-27 12:58] LABS: Adenovirus Not Detected (Not Detect); Bordetella Pertussis Not Detected (Not Detect); Chlamydophila pneumoniae Not Detected (Not Detect); Coronavirus 229E Not Detected (Not Detect); Coronavirus HKU1 Not Detected (Not Detect); Coronavirus NL63 Not Detected (Not Detect); Coronavirus OC43 DETECTED (Not Detect); Human Metapneumovirus Not Detected (Not Detect); Human Rhinovirus/Enterovirus Not Detected (Not Detect); Influenza A Subtype 2009 H1 Not Detected (Not Detect); Influenza A Untypeable Not Detected (Not Detect); Influenza B Not Detected (Not Detect); Mycoplasma pneumoniae Not Detected (Not Detect); Parainfluenza Virus 1 Not Detected (Not Detect); Parainfluenza Virus 2 Not Detected (Not Detect); Parainfluenza Virus 3 Not Detected (Not Detect); Parainfluenza Virus 4 Not Detected (Not Detect); Respiratory Syncytial Virus Not Detected (Not Detect)
[2018-05-27 14:11] VITALS: BP 122/80
--- NOTE | 2018-05-27 15:06 | Discharge Summary ---
- NOTES TO OUTPATIENT PROVIDER Notes to Outpatient Provider: 1. Patient has mild leukocytosis, mostly due to acute bronchitis. Please repeat WBC on follow-up. 2. Patient developed hypokalemia, which resolved after supplement, please repeat potassium level. 3. Patient developed bilateral leg weakness, which is resolved after potassium supplement. Patient was instructed came to ER if weakness presented again. Patient is scheduled to follow-up with neurology as outpatient. Orders not resulted at time of discharge: Pending orders 05/26/18 05:28 Testosterone,Total Stat Date of Encounter: 05/27/18 Time of Encounter: 13:00 - Discharge Diagnosis (1) Paraparesis of both lower limbs Priority: Primary Status: Acute (2) Hypokalemia Priority: Primary Status: Acute (3) Hyperglycemia Priority: Primary Status: Acute (4) Polycythemia Priority: Secondary Status: Acute (5) Leukocytosis Priority: Primary Status: Acute Qualifiers: Leukocytosis type: unspecified Qualified Code(s): D72.829 - Elevated white blood cell count, unspecified (6) Tobacco abuse Priority: Secondary Status: Chronic (7) Acute bronchitis Priority: Primary Status: Acute Qualifiers: Bronchitis organism: other organism Qualified Code(s): J20.8 - Acute bronchitis due to other specified organisms Hospital course: Mr. Scott is a 47 year old male presented to ER for bilateral leg weakness and symptoms of URI. Patient was treated with cough medication for acute bronchitis. Respiratory virus panel shows coronavirus positive, rapid strep test negative. Neurologic consult saw patient for weakness. T-spine and L- spine MRI has been done, and remarkable except mild stenosis. Leg weakness completely resolved after potassium supplement. We will continue treatment with antibiotic and cough syrup for URI. Close monitor and a follow-up as outpatient. Patient has mild leukocytosis, which is getting down. I have seen and examined this patient today. Patient is AAO 3, in no acute distress. Has mild dry cough. Chest x-ray yesterday shows no acute change. Vitals are stable. Will discharge patient home and continue follow-up with PCP and neurology as outpatient Discharge discussed with: patient Time spent discussing smoking cessation with patient: 3 to 10 minutes - Time Spent with Patient Total time spent providing and/or coordinating discharge services: 25 minutes Less than 30 minutes - Discharge Medications Prescriptions: Acetaminophen [Tylenol] 650 mg PO Q6HR PRN #20 tablet PRN Reason: Fever levoFLOXacin [Levaquin] 750 mg PO DAILY #5 tablet Home Medications: Acetaminophen [Tylenol] 650 mg PO Q6HR PRN #20 tablet 05/27/18 [Rx] GuaiFENesin Liq [Robitussin Liq] 200 mg PO Q6HR 5 Days #200 mls 05/27/18 [Rx] levoFLOXacin [Levaquin] 750 mg PO DAILY #5 tablet 05/27/18 [Rx] Allergies/Adverse Reactions: Allergy/AdvReac Type Severity Reaction Status Date / Time No Known Allergies Allergy Verified 05/26/18 13:13 Date of admission: 05/26/18 05:28 Primary care physician: PCP NONE Consults: 05/26/18 05:47 Consult to Neurology [CONS] Stat Consulting Provider: Neurology [facility] Reason for Consult: muscle weakness; paralysis Call Completed: Yes Discharging clinician: Bolivar Canela Anticipated date of discharge: 05/27/18 - Constitutional Vitals: Temp Pulse Resp BP Pulse Ox 98.1 F 65 14 122/80 96 05/27/18 14:05 05/27/18 14:05 05/27/18 14:05 05/27/18 14:05 05/27/18 14:05 Exam: Pt is AAO x 3, in NAD HEENT: NC/AT, PERRL Neck: Supple, no JVD, no LAD Lungs: CTA b/l Heart: S1S2, RRR Abd: Soft, nontender, BS present Ext: ROM wnl, no pedal edema Neuro: No focal deficit - Patient Status Disposition: Home, Self-Care Condition: Good Functional capacity at discharge: independent ambulation Overall status at discharge: patient is back to baseline - Discharge Instructions Follow Up With: NONE,PCP [Primary Care Provider] - Leon Ott DO [Partnered Physician] - 06/03/18 - Diet and Activity Activity: increase activity as tolerated Diet: advance to your usual diet
--- NOTE | 2018-05-28 16:54 | Electrocardiograph Report ---
[address] [address] Test Date: 2018-05-26 Pat Name: Best Scott Department: EXAM2 Room: 3A55 Gender: M [employer]over: : 1970 Requested By: Yosi Salomon Order Number: [id number] Reading MD: Macario Noriega Measurements Intervals [place] Rate: 74 P: 67 ND: 127 QRS: 80 QRSD: 97 T: -2 QT: 370 QTc: 411 Interpretive Statements Sinus rhythm Borderline repolarization abnormality Electronically Signed On 05-28-2018 16:53:06 EST by Macario Noriega
== END 2018-05-27 15:35 | disposition home or self-care (01) ==
LOC: 3ANU 21:26 → EMEROOARM 21:26 → 3ANU 05-26 05:55
PROVIDERS: ADMIT Family Medicine; ATTEND Family Medicine